=== PATIENT | male | born 1965 | race Asian ===

== ENCOUNTER 2016-12-12 10:19 | Inpatient (IN) | payer MEDICAID, OTHER ==
[~2016-12-12] VITALS: Ht 165.1 cm; Wt 65.5 kg
[2016-12-12 10:49] LABS: BASOPHILS % (AUTO) 0.2 % (0.0-2.0); EOSINOPHILS % (AUTO) 6.2 % (1.0-6.0); HEMATOCRIT 47.5 % (41-53); HEMOGLOBIN 15.7 g/dL (13.5-17.5); LYMPHOCYTES # (AUTO) 1.7 K/uL (1.0-4.8); LYMPHOCYTES % (AUTO) 22.4 % (22.0-44.0); MEAN CORPUSCULAR HEMOGLOBIN 29.2 pg (26.0-34.0); MEAN CORPUSCULAR HGB CONC 32.9 G/dL (31.0-37.0); MEAN CORPUSCULAR VOLUME 89 fL (80-100); MONOCYTES # (AUTO) 0.5 K/uL (0.1-1.0); MONOCYTES % (AUTO) 6.4 % (2.0-9.0); NEUTROPHILS # (AUTO) 4.9 K/uL (1.8-7.7); NEUTROPHILS % (AUTO) 64.8 % (40.0-70.0); PLATELET COUNT (AUTO) 246 K/uL (150-450); RED BLOOD CELL COUNT(AUTO) 5.35 MIL/uL (4.50-5.90); RED CELL DISTRIBUTION WIDTH 13.4 % (11.5-14.5); WHITE BLOOD COUNT (AUTO) 7.6 K/uL (4.5-11.0)
[2016-12-12 10:59] LABS: ANION GAP 8 mmol/L (8-16); CALCIUM, TOTAL 9.3 mg/dL (8.8-10.5); CARBON DIOXIDE 30 mmol/L (22-29); CHLORIDE 103 mmol/L (98-107); CREATININE 1.06 mg/dL (0.60-1.30); GLOMERULAR FILTR. RATE CALC > 60 mL/min (>60); POTASSIUM 4.5 mmol/L (3.5-5.1); SODIUM SERUM 141 mmol/L (136-145); UREA NITROGEN, BLOOD 16 mg/dL (7-18)
[2016-12-12] MEDS ORDERED: RISP1 PO (10:59)
[2016-12-12 11:03] LABS: ALANINE AMINOTRANSFERASE 26 U/L (12-78); ALBUMIN 4.1 g/dL (3.4-5.0); ASPARTATE AMINOTRANSFERASE 18 U/L (15-37); BILIRUBIN,TOTAL 0.4 mg/dL (0.1-1.0); TOTAL PROTEIN, SERUM 8.4 g/dL (6.4-8.2)
[2016-12-12] MEDS ORDERED: RisperiDONE 1 MG TABLET PO ONE (13:30)
[2016-12-12] MEDS ORDERED: LORazepam 2 MG TABLET PO ONE (13:30)
[2016-12-12] MEDS ORDERED: LORazepam 2 MG TABLET PO PRN (14:15)
[2016-12-12] MEDS ORDERED: ZOLPIDEM TARTRATE 10 MG TABLET PO PRN (14:15)
[2016-12-12] MEDS ORDERED: HALOPERIDOL 5 MG TABLET PO PRN (14:15)
[2016-12-12 15:36] VITALS: BP 137/86
[2016-12-12] MEDS ORDERED: INFLUENZA VIRUS VACCINE QVS 2016-17 (3YR+)/PF 60 MCG/0.5 ML SYRINGE IM ONE (15:45)
[2016-12-12 18:25] VITALS: BP 128/73
[2016-12-12] MEDS: RisperiDONE 1 MG TABLET PO SCH (20:36)
[2016-12-12] MEDS: DiphenhydrAMINE HCL 25 MG CAPSULE PO SCH (20:36)
[2016-12-13] MEDS ORDERED: PNEUMOCOCCAL VACCINE POLYVALENT 0.5 ML VIAL [PPSV23] IM ONE (06:45)
[2016-12-13] MEDS ORDERED: IBUPROFEN 400 MG TABLET PO PRN (07:15)
[2016-12-13] MEDS ORDERED: ACETAMINOPHEN 325 MG TABLET PO PRN (07:15)
[2016-12-13 08:30] VITALS: BP 140/90
[2016-12-13 19:23] VITALS: BP 122/74
[2016-12-13] MEDS: DiphenhydrAMINE HCL 25 MG CAPSULE PO SCH (20:20)
[2016-12-13] MEDS: RisperiDONE 1 MG TABLET PO SCH (20:20)
[2016-12-14 07:21] LABS: CHOL/HDL RATIO 6.1 (4.2-7.3); HEMOGLOBIN A1C 6.5 % (4.5-6.2); THYROID STIMULATING HORMONE 0.65 uIU/mL (0.36-3.74)
[2016-12-14 08:30] VITALS: BP 109/93
[2016-12-14 17:01] VITALS: BP 147/98
[2016-12-14] MEDS: RisperiDONE 1 MG TABLET PO SCH (20:04)
[2016-12-14] MEDS: DiphenhydrAMINE HCL 25 MG CAPSULE PO SCH (20:04)
[2016-12-15 08:00] VITALS: BP 127/80
[2016-12-15 16:56] VITALS: BP 142/85
[2016-12-15] MEDS: DiphenhydrAMINE HCL 25 MG CAPSULE PO SCH (20:39)
[2016-12-15] MEDS: RisperiDONE 1 MG TABLET PO SCH (20:39)
[2016-12-16 08:07] VITALS: BP 141/76
[2016-12-16] MEDS: RisperiDONE 1 MG TABLET PO SCH (20:08)
[2016-12-16] MEDS: DiphenhydrAMINE HCL 25 MG CAPSULE PO SCH (20:08)
[2016-12-16 20:10] VITALS: BP 122/83
[2016-12-17 08:00] VITALS: BP 127/78
[2016-12-17] MEDS ORDERED: RISP2 PO (14:22)
[2016-12-17] MEDS ORDERED: DIPH25 PO (14:22)
[2016-12-17] MEDS ORDERED: RisperiDONE 2 MG TABLET PO SCH (21:00)
== END 2016-12-17 20:00 | disposition home or self-care (01) | DRG 750 ==
LOC: EMS 10:23 → EEVIPCON 10:23 → 3EI 14:42
DX: F20.0 Paranoid schizophrenia (principal); R45.850 Homicidal ideations; I10 Essential (primary) hypertension; F15.90 Other stimulant use, unspecified, uncomplicated; F17.210 Nicotine dependence, cigarettes, uncomplicated; Z71.51 Drug abuse counseling and surveillance of drug abuser; Z28.21 Immunization not carried out because of patient refusal
CPT/HCPCS: 83036; 84443; 99285; G0480

== ENCOUNTER 2017-12-06 21:58 | Inpatient (IN) | payer MEDICAID, OTHER ==
[~2017-12-06] VITALS: Ht 165.1 cm; Wt 62.7 kg
[~2017-12-06 21:58] MED LIST: DIPH25 PO; RISP2 PO
[2017-12-06 22:31] LABS: BASOPHILS % (AUTO) 1.2 % (0.0-2.0); EOSINOPHILS % (AUTO) 9.7 % (1.0-6.0); HEMATOCRIT 40.9 % (41-53); HEMOGLOBIN 13.8 g/dL (13.5-17.5); LYMPHOCYTES # (AUTO) 1.2 K/uL (1.0-4.8); LYMPHOCYTES % (AUTO) 20.1 % (22.0-44.0); MEAN CORPUSCULAR HEMOGLOBIN 29.7 pg (26.0-34.0); MEAN CORPUSCULAR HGB CONC 33.8 G/dL (31.0-37.0); MEAN CORPUSCULAR VOLUME 88 fL (80-100); MONOCYTES # (AUTO) 0.4 K/uL (0.1-1.0); MONOCYTES % (AUTO) 7.1 % (2.0-9.0); NEUTROPHILS # (AUTO) 3.8 K/uL (1.8-7.7); NEUTROPHILS % (AUTO) 61.9 % (40.0-70.0); PLATELET COUNT (AUTO) 215 K/uL (150-450); RED BLOOD CELL COUNT(AUTO) 4.66 MIL/uL (4.50-5.90); RED CELL DISTRIBUTION WIDTH 14.3 % (11.5-14.5)
[2017-12-06 22:44] LABS: ANION GAP 10 mmol/L (8-16); CALCIUM, TOTAL 8.3 mg/dL (8.8-10.5); CARBON DIOXIDE 25 mmol/L (22-29); CHLORIDE 107 mmol/L (98-107); GLOMERULAR FILTR. RATE CALC > 60 mL/min (>60); GLUCOSE,RANDOM 177 mg/dL (70-110); POTASSIUM 3.7 mmol/L (3.5-5.1); SODIUM SERUM 142 mmol/L (136-145); UREA NITROGEN, BLOOD 18 mg/dL (7-18)
[2017-12-06] MEDS ORDERED: ACETAMINOPHEN 325 MG TABLET PO PRN (22:45)
[2017-12-06] MEDS ORDERED: ZOLPIDEM TARTRATE 10 MG TABLET PO PRN (22:45)
[2017-12-06] MEDS ORDERED: MAG HYDROX/AL HYDROX/SIMETH ES 30 ML SUSPENSION UDCUP PO PRN (22:45)
[2017-12-06] MEDS ORDERED: HALOPERIDOL 5 MG TABLET PO PRN (22:45)
[2017-12-06] MEDS ORDERED: LORazepam 2 MG TABLET PO PRN (22:45)
[2017-12-06] MEDS ORDERED: MAGNESIUM HYDROXIDE SUSPENSION 30 ML UDCUP PO PRN (22:45)
[2017-12-06 22:50] LABS: ALANINE AMINOTRANSFERASE 24 U/L (12-78); ALBUMIN 3.4 g/dL (3.4-5.0); ALKALINE PHOSPHATASE 93 U/L (46-116); ASPARTATE AMINOTRANSFERASE 18 U/L (15-37); BILIRUBIN,TOTAL 0.2 mg/dL (0.1-1.0); TOTAL PROTEIN, SERUM 7.2 g/dL (6.4-8.2)
[2017-12-06 23:01] LABS: AMPHET/METH SCREEN,URINE POSITIVE (NEGATIVE); BARBITURATE SCREEN, URINE NEGATIVE (NEGATIVE); BENZODIAZEPINES SCREEN,URINE NEGATIVE (NEGATIVE); CANNABINOID SCREEN,URINE NEGATIVE (NEGATIVE); COCAINE SCREEN,URINE NEGATIVE (NEGATIVE); METHADONE SCREEN, URINE NEGATIVE (NEGATIVE); OPIATE SCREEN,URINE NEGATIVE (NEGATIVE); PHENCYCLIDINE SCREEN,URINE NEGATIVE (NEGATIVE)
[2017-12-07 02:51] LABS: CHOL/HDL RATIO 3.4 (4.2-7.3); CHOLESTEROL 167 mg/dL (131-200); HDL CHOLESTEROL 49 mg/dL (40-60); LDL CHOL (CALC.) 69 mg/dL (0-130); TRIGLYCERIDES 245 mg/dL (15-150)
[2017-12-07 09:45] VITALS: BP 136/86
[2017-12-07 19:16] VITALS: BP 123/78
[2017-12-07] MEDS: RisperiDONE 1 MG TABLET PO SCH (19:56)
[2017-12-07] MEDS ORDERED: ACETAMINOPHEN 325 MG TABLET PO PRN (20:45)
[2017-12-07] MEDS ORDERED: IBUPROFEN 400 MG TABLET PO PRN (20:45)
[2017-12-07] MEDS: DiphenhydrAMINE HCL 25 MG CAPSULE PO SCH (20:51)
[2017-12-07] MEDS: SIMVASTATIN 10 MG TABLET PO SCH (21:37)
[2017-12-08 06:28] LABS: GLUCOMETER DEV NAME(LOC) 3EI B; GLUCOSE,POINT OF CARE 128 MG/DL (70-110)
[2017-12-08 06:53] VITALS: BP 118/73
[2017-12-08 07:53] LABS: THYROID STIMULATING HORMONE 1.66 uIU/mL (0.36-3.74)
[2017-12-08 08:30] VITALS: BP 119/77
[2017-12-08 08:34] LABS: HEMOGLOBIN A1C 5.6 % (4.5-6.2)
[2017-12-08] MEDS: RisperiDONE 1 MG TABLET PO SCH ×2 (09:55→16:42)
[2017-12-08 16:31] VITALS: BP 132/78
[2017-12-08] MEDS: SIMVASTATIN 10 MG TABLET PO SCH (20:58)
[2017-12-08] MEDS: DiphenhydrAMINE HCL 25 MG CAPSULE PO SCH (20:59)
[2017-12-09 05:57] LABS: GLUCOMETER DEV NAME(LOC) 3EI B; GLUCOSE,POINT OF CARE 107 MG/DL (70-110)
[2017-12-09 08:55] VITALS: BP 133/87
[2017-12-09] MEDS: RisperiDONE 1 MG TABLET PO SCH ×2 (09:26→16:56)
[2017-12-09 16:26] VITALS: BP 123/77
[2017-12-09] MEDS ORDERED: SIMV-259 PO (19:36)
== END 2017-12-09 20:00 | disposition home or self-care (01) | DRG 750 ==
LOC: EMS 21:59 → AHU 12-07 09:20 → 3EI 12-07 18:45
PROVIDERS: ADMIT Psychiatry & Neurology Child & Adolescent Psychiatry; ATTEND Psychiatry & Neurology Child & Adolescent Psychiatry
DX: F20.0 Paranoid schizophrenia (principal); I10 Essential (primary) hypertension; F15.10 Other stimulant abuse, uncomplicated; E78.5 Hyperlipidemia, unspecified; F41.9 Anxiety disorder, unspecified; R73.9 Hyperglycemia, unspecified
CPT/HCPCS: 82962; 83036; 84443; 87081; 99285; G0480

== ENCOUNTER 2018-12-07 12:59 | Inpatient (IN) | payer MEDICAID, OTHER ==
[~2018-12-07] VITALS: Ht 165.1 cm; Wt 63.5 kg
[~2018-12-07 12:59] MED LIST changes: +SIMV-259 PO
[2018-12-07] MEDS ORDERED: TEMA15CA PO (13:24)
[2018-12-07] MEDS ORDERED: LORA10TA7 PO (13:24)
[2018-12-07] MEDS ORDERED: METO25 PO (13:24)
[2018-12-07] MEDS ORDERED: SERT50TA12 PO (13:24)
[2018-12-07] MEDS ORDERED: FERR-89 PO (13:24)
[2018-12-07] MEDS ORDERED: ASPI81 PO (13:24)
[2018-12-07] MEDS ORDERED: FOLI1 PO (13:24)
[2018-12-07] MEDS ORDERED: SENN8.6T52 PO (13:24)
[2018-12-07] MEDS ORDERED: IPRA3AMP24 NEB (13:24)
[2018-12-07] MEDS ORDERED: LISI-662 PO (13:24)
[2018-12-07 13:28] LABS: GLUCOSE,POINT OF CARE 194 MG/DL (70-110)
[2018-12-07 13:36] LABS: BASOPHILS % (AUTO) 1.3 % (0.0-2.0); EOSINOPHILS % (AUTO) 2.6 % (1.0-6.0); HEMATOCRIT 27.9 % (41-53); HEMOGLOBIN 9.2 g/dL (13.5-17.5); LYMPHOCYTES # (AUTO) 0.9 K/uL (1.0-4.8); LYMPHOCYTES % (AUTO) 8.5 % (22.0-44.0); MEAN CORPUSCULAR HEMOGLOBIN 29.1 pg (26.0-34.0); MEAN CORPUSCULAR VOLUME 88 fL (80-100); MONOCYTES # (AUTO) 0.7 K/uL (0.1-1.0); MONOCYTES % (AUTO) 7.3 % (2.0-9.0); NEUTROPHILS # (AUTO) 8.1 K/uL (1.8-7.7); NEUTROPHILS % (AUTO) 80.3 % (40.0-70.0); PLATELET COUNT (AUTO) 603 K/uL (150-450); RED BLOOD CELL COUNT(AUTO) 3.16 MIL/uL (4.50-5.90); RED CELL DISTRIBUTION WIDTH 14.8 % (11.5-14.5)
[2018-12-07 13:48] LABS: ANION GAP 8 mmol/L (8-16); CALCIUM, TOTAL 8.9 mg/dL (8.8-10.5); CARBON DIOXIDE 25 mmol/L (22-29); CHLORIDE 99 mmol/L (98-107); GLOMERULAR FILTR. RATE CALC > 60 mL/min (>60); GLUCOSE,RANDOM 199 mg/dL (70-110); POTASSIUM 4.3 mmol/L (3.5-5.1); SODIUM SERUM 132 mmol/L (136-145); UREA NITROGEN, BLOOD 23 mg/dL (7-18)
[2018-12-07 13:53] LABS: PROTHROMBIN TIME 10.7 SEC (9.4-11.6)
[2018-12-07 13:54] LABS: ALANINE AMINOTRANSFERASE 69 U/L (12-78); ALKALINE PHOSPHATASE 180 U/L (46-116); ASPARTATE AMINOTRANSFERASE 46 U/L (15-37); BILIRUBIN,TOTAL 0.3 mg/dL (0.1-1.0); CREATINE KINASE, TOTAL ONLY 42 U/L (39-308); TOTAL PROTEIN, SERUM 7.5 g/dL (6.4-8.2)
[2018-12-07 14:13] LABS: B-TYPE NATRIURETIC PEPTIDE 208 pg/mL (0-100)
[2018-12-07] MEDS ORDERED: ACETAMINOPHEN 325 MG TABLET PO PRN (14:45)
[2018-12-07] MEDS ORDERED: ALBUTEROL SULFATE 2.5 MG/0.5 ML NEB SOLUTION NEB PRN (14:45)
[2018-12-07] MEDS ORDERED: DEXTROSE 50%-WATER 25 GM/50 ML SYRINGE IVP PRN (15:00)
[2018-12-07] MEDS ORDERED: GADOBUTROL 1 MMOL/ML 10 ML VIAL IVP ONE (15:36)
[2018-12-07] MEDS ORDERED: RisperiDONE 1 MG TABLET PO PRN (16:00)
[2018-12-07] MEDS: HEPARIN SODIUM,PORCINE 5,000 UNITS/ML VIAL SQ SCH ×2 (16:49→23:53)
[2018-12-07 17:21] VITALS: BP 97/65
[2018-12-07 19:48] VITALS: BP 99/57
[2018-12-07 20:37] LABS: GLUCOMETER DEV NAME(LOC) 5N.1; GLUCOSE,POINT OF CARE 145 MG/DL (70-110)
[2018-12-07] MEDS: DOCUSATE SODIUM 100 MG CAPSULE PO SCH (20:38)
[2018-12-07] MEDS: RisperiDONE 2 MG TABLET PO SCH (20:38)
[2018-12-07] MEDS: ATORVASTATIN CALCIUM 40 MG TABLET PO SCH (20:38)
[2018-12-07] MEDS: FAMOTIDINE 20 MG TABLET PO SCH (20:38)
[2018-12-07] MEDS: INSULIN LISPRO 100 UNITS/ML SQ PRN (20:39)
[2018-12-07 20:53] LABS: GLUCOMETER DEV NAME(LOC) 5N.2; GLUCOSE,POINT OF CARE 109 MG/DL (70-110)
[2018-12-07] MEDS ORDERED: DiphenhydrAMINE HCL 25 MG CAPSULE PO SCH (21:00)
[2018-12-07 23:48] VITALS: BP 105/65
[2018-12-08] VITALS (7 sets, daily range): BP systolic 74–120; BP diastolic 52–65
[2018-12-08 05:40] LABS: APPEARANCE,URINE CLEAR (CLEAR); BILIRUBIN,URINE NEGATIVE (NEGATIVE); GLUCOSE, URINE (UA) NEGATIVE (NEGATIVE); KETONES,URINE NEGATIVE (NEGATIVE); LEUKOCYTE ESTERASE ,URINE NEGATIVE (NEGATIVE); NITRATE,URINE NEGATIVE (NEGATIVE); OCCULT BLOOD,URINE NEGATIVE (NEGATIVE); PH,URINE 5.5 (5.0-8.0); PROTEIN,URINE NEGATIVE (NEGATIVE)
[2018-12-08 05:45] LABS: GLUCOMETER DEV NAME(LOC) 5N.2; GLUCOSE,POINT OF CARE 123 MG/DL (70-110)
[2018-12-08] MEDS ORDERED: SODIUM CHLORIDE 0.9% 1,000 ML IV SCH (06:00)
[2018-12-08] MEDS ORDERED: SODIUM CHLORIDE 0.9% 1,000 ML IV ONE (06:00)
[2018-12-08] MEDS: HEPARIN SODIUM,PORCINE 5,000 UNITS/ML VIAL SQ SCH ×3 (07:50→22:16)
[2018-12-08] MEDS: SERTRALINE HCL 50 MG TABLET PO SCH (07:50)
[2018-12-08] MEDS: DOCUSATE SODIUM 100 MG CAPSULE PO SCH ×2 (07:50→22:16)
[2018-12-08] MEDS: FAMOTIDINE 20 MG TABLET PO SCH ×2 (07:50→22:15)
[2018-12-08] MEDS ORDERED: LISINOPRIL 5 MG TABLET PO SCH (09:00)
[2018-12-08] MEDS ORDERED: ASPIRIN 81 MG CHEWABLE TABLET PO SCH (09:00)
[2018-12-08] MEDS ORDERED: METOPROLOL SUCCINATE 25 MG ER TABLET PO SCH (09:00)
[2018-12-08] MEDS ORDERED: SODIUM CHLORIDE 0.9% IRRIG BTL 1,000 ML IRRIG ONE (10:34)
[2018-12-08 12:54] LABS: GLUCOMETER DEV NAME(LOC) 5N.2; GLUCOSE,POINT OF CARE 112 MG/DL (70-110)
[2018-12-08 12:59] LABS: HEMOGLOBIN A1C 5.8 % (4.5-6.2)
[2018-12-08 13:16] LABS: CHOL/HDL RATIO 2.8 (4.2-7.3); THYROID STIMULATING HORMONE 0.78 uIU/mL (0.36-3.74)
[2018-12-08] MEDS ORDERED: SODIUM CHLORIDE 0.9% 100 ML ONE (16:31)
[2018-12-08] MEDS ORDERED: IOVERSOL 350 MG/ML 100 ML VIAL ONE (16:31)
[2018-12-08] MEDS: ATORVASTATIN CALCIUM 40 MG TABLET PO SCH (22:15)
[2018-12-08] MEDS: RisperiDONE 2 MG TABLET PO SCH (22:16)
[2018-12-08] MEDS: OxyCODONE HCL/ACETAMINOPHEN 5-325 MG TABLET PO PRN (22:16)
[2018-12-08] MEDS: INSULIN LISPRO 100 UNITS/ML SQ PRN (22:41)
[2018-12-09 00:24] VITALS: BP 110/66
[2018-12-09 03:59] VITALS: BP 142/57
[2018-12-09 07:39] LABS: GLUCOMETER DEV NAME(LOC) 5N.1; GLUCOSE,POINT OF CARE 157 MG/DL (70-110)
[2018-12-09 07:39] LABS: GLUCOMETER DEV NAME(LOC) 5N.2; GLUCOSE,POINT OF CARE 183 MG/DL (70-110)
[2018-12-09 07:39] LABS: GLUCOMETER DEV NAME(LOC) 5N.1; GLUCOSE,POINT OF CARE 134 MG/DL (70-110)
[2018-12-09 07:42] VITALS: BP 109/68
[2018-12-09] MEDS: HEPARIN SODIUM,PORCINE 5,000 UNITS/ML VIAL SQ SCH ×2 (08:26→17:18)
[2018-12-09] MEDS: SERTRALINE HCL 50 MG TABLET PO SCH (08:26)
[2018-12-09] MEDS: ASPIRIN 325 MG TABLET PO SCH (08:26)
[2018-12-09] MEDS: FAMOTIDINE 20 MG TABLET PO SCH ×2 (08:27→20:31)
[2018-12-09] MEDS: DOCUSATE SODIUM 100 MG CAPSULE PO SCH ×2 (08:27→20:31)
[2018-12-09 11:11] VITALS: BP 100/58
[2018-12-09 13:34] LABS: GLUCOMETER DEV NAME(LOC) 5N.2; GLUCOSE,POINT OF CARE 125 MG/DL (70-110)
[2018-12-09 15:59] VITALS: BP 99/59
[2018-12-09 19:41] VITALS: BP 105/69
[2018-12-09] MEDS: RisperiDONE 2 MG TABLET PO SCH (20:31)
[2018-12-09] MEDS: ATORVASTATIN CALCIUM 40 MG TABLET PO SCH (20:31)
[2018-12-09] MEDS: OxyCODONE HCL/ACETAMINOPHEN 5-325 MG TABLET PO PRN (21:37)
[2018-12-10 00:03] VITALS: BP 115/73
[2018-12-10] MEDS: HEPARIN SODIUM,PORCINE 5,000 UNITS/ML VIAL SQ SCH ×3 (00:05→15:10)
[2018-12-10 04:25] VITALS: BP 97/65
[2018-12-10 07:29] LABS: GLUCOMETER DEV NAME(LOC) 5N.1; GLUCOSE,POINT OF CARE 105 MG/DL (70-110)
[2018-12-10 07:29] LABS: GLUCOMETER DEV NAME(LOC) 5N.1; GLUCOSE,POINT OF CARE 122 MG/DL (70-110)
[2018-12-10 07:29] LABS: GLUCOMETER DEV NAME(LOC) 5N.1; GLUCOSE,POINT OF CARE 113 MG/DL (70-110)
[2018-12-10 07:45] VITALS: BP 97/66
[2018-12-10] MEDS: ASPIRIN 325 MG TABLET PO SCH (08:17)
[2018-12-10] MEDS: FAMOTIDINE 20 MG TABLET PO SCH ×2 (08:17→20:09)
[2018-12-10] MEDS: DOCUSATE SODIUM 100 MG CAPSULE PO SCH ×2 (08:17→20:09)
[2018-12-10] MEDS: SERTRALINE HCL 50 MG TABLET PO SCH (08:18)
[2018-12-10 11:01] VITALS: BP 119/70
[2018-12-10 11:50] LABS: GLUCOMETER DEV NAME(LOC) 5N.1; GLUCOSE,POINT OF CARE 132 MG/DL (70-110)
[2018-12-10 15:50] VITALS: BP 109/72
[2018-12-10 19:52] VITALS: BP 108/70
[2018-12-10] MEDS: ATORVASTATIN CALCIUM 40 MG TABLET PO SCH (20:09)
[2018-12-10] MEDS: RisperiDONE 2 MG TABLET PO SCH (20:10)
[2018-12-11] VITALS (8 sets, daily range): BP systolic 86–112; BP diastolic 60–73
[2018-12-11] MEDS: HEPARIN SODIUM,PORCINE 5,000 UNITS/ML VIAL SQ SCH ×3 (00:57→15:33)
[2018-12-11 06:04] LABS: GLUCOMETER DEV NAME(LOC) 5N.1; GLUCOSE,POINT OF CARE 139 MG/DL (70-110)
[2018-12-11 06:05] LABS: GLUCOMETER DEV NAME(LOC) 5N.1; GLUCOSE,POINT OF CARE 124 MG/DL (70-110)
[2018-12-11 07:49] LABS: GLUCOMETER DEV NAME(LOC) 5N.2; GLUCOSE,POINT OF CARE 107 MG/DL (70-110)
[2018-12-11] MEDS: DOCUSATE SODIUM 100 MG CAPSULE PO SCH ×2 (09:03→20:05)
[2018-12-11] MEDS: FAMOTIDINE 20 MG TABLET PO SCH ×2 (09:03→20:05)
[2018-12-11] MEDS: SERTRALINE HCL 50 MG TABLET PO SCH (09:03)
[2018-12-11] MEDS: ASPIRIN 325 MG TABLET PO SCH (09:03)
[2018-12-11] MEDS ORDERED: SODIUM CHLORIDE 0.9% 250 ML IV PRN (09:15)
[2018-12-11] MEDS: INSULIN LISPRO 100 UNITS/ML SQ PRN ×2 (12:00→20:06)
[2018-12-11 18:54] LABS: GLUCOMETER DEV NAME(LOC) 5N.1; GLUCOSE,POINT OF CARE 103 MG/DL (70-110)
[2018-12-11 18:54] LABS: GLUCOMETER DEV NAME(LOC) 5N.2; GLUCOSE,POINT OF CARE 165 MG/DL (70-110)
[2018-12-11] MEDS: MAGNESIUM HYDROXIDE SUSPENSION 30 ML UDCUP PO PRN (19:51)
[2018-12-11] MEDS: RisperiDONE 2 MG TABLET PO SCH (20:05)
[2018-12-11] MEDS: ATORVASTATIN CALCIUM 40 MG TABLET PO SCH (20:05)
[2018-12-11] MEDS: OxyCODONE HCL/ACETAMINOPHEN 5-325 MG TABLET PO PRN (21:05)
[2018-12-11 23:04] LABS: GLUCOMETER DEV NAME(LOC) 5N.1; GLUCOSE,POINT OF CARE 195 MG/DL (70-110)
[2018-12-12] MEDS: HEPARIN SODIUM,PORCINE 5,000 UNITS/ML VIAL SQ SCH ×3 (00:02→15:29)
[2018-12-12 03:58] VITALS: BP 101/72
[2018-12-12 07:23] VITALS: BP 104/60
[2018-12-12 07:39] LABS: GLUCOMETER DEV NAME(LOC) 5N.1; GLUCOSE,POINT OF CARE 104 MG/DL (70-110)
[2018-12-12] MEDS: ASPIRIN 325 MG TABLET PO SCH (08:15)
[2018-12-12] MEDS: DOCUSATE SODIUM 100 MG CAPSULE PO SCH ×2 (08:15→20:14)
[2018-12-12] MEDS: FAMOTIDINE 20 MG TABLET PO SCH ×2 (08:16→21:23)
[2018-12-12] MEDS: SERTRALINE HCL 50 MG TABLET PO SCH (08:16)
[2018-12-12 10:33] VITALS: BP 107/72
[2018-12-12] MEDS: INSULIN LISPRO 100 UNITS/ML SQ PRN ×2 (11:49→20:26)
[2018-12-12 12:59] LABS: GLUCOMETER DEV NAME(LOC) 5N.1; GLUCOSE,POINT OF CARE 177 MG/DL (70-110)
[2018-12-12 16:00] VITALS: BP 101/68
[2018-12-12 19:22] VITALS: BP 101/71
[2018-12-12] MEDS: RisperiDONE 2 MG TABLET PO SCH (20:14)
[2018-12-12] MEDS: ATORVASTATIN CALCIUM 40 MG TABLET PO SCH (20:15)
[2018-12-12] MEDS: MAGNESIUM HYDROXIDE SUSPENSION 30 ML UDCUP PO PRN (20:22)
[2018-12-13] MEDS: HEPARIN SODIUM,PORCINE 5,000 UNITS/ML VIAL SQ SCH ×3 (00:06→16:07)
[2018-12-13 00:09] VITALS: BP 109/76
[2018-12-13 03:00] VITALS: BP 104/69
[2018-12-13] MEDS: OxyCODONE HCL/ACETAMINOPHEN 5-325 MG TABLET PO PRN (03:02)
[2018-12-13 06:05] LABS: GLUCOMETER DEV NAME(LOC) 5N.1; GLUCOSE,POINT OF CARE 110 MG/DL (70-110)
[2018-12-13 06:05] LABS: GLUCOMETER DEV NAME(LOC) 5N.1; GLUCOSE,POINT OF CARE 162 MG/DL (70-110)
[2018-12-13 06:44] LABS: GLUCOMETER DEV NAME(LOC) 5N.2; GLUCOSE,POINT OF CARE 114 MG/DL (70-110)
[2018-12-13 07:21] VITALS: BP 100/62
[2018-12-13] MEDS: FAMOTIDINE 20 MG TABLET PO SCH (07:59)
[2018-12-13] MEDS: SERTRALINE HCL 50 MG TABLET PO SCH (07:59)
[2018-12-13] MEDS: DOCUSATE SODIUM 100 MG CAPSULE PO SCH (07:59)
[2018-12-13] MEDS: ASPIRIN 325 MG TABLET PO SCH (07:59)
[2018-12-13 11:28] VITALS: BP 135/65
[2018-12-13] MEDS: INSULIN LISPRO 100 UNITS/ML SQ PRN ×2 (12:11→18:06)
[2018-12-13 12:34] LABS: GLUCOMETER DEV NAME(LOC) 5N.1; GLUCOSE,POINT OF CARE 168 MG/DL (70-110)
[2018-12-13] MEDS ORDERED: ASPI-989 PO (14:08)
[2018-12-13] MEDS ORDERED: DSS100 PO (14:09)
[2018-12-13] MEDS ORDERED: FAMO20 PO (14:09)
[2018-12-13] MEDS ORDERED: ATOR40TA28 PO (14:09)
[2018-12-13] MEDS ORDERED: HEPA500018 SQ (14:10)
[2018-12-13] MEDS ORDERED: ACET-2247 PO (14:10)
[2018-12-13] MEDS ORDERED: AUD NEB (14:11)
[2018-12-13] MEDS ORDERED: D50SYG IV (14:12)
[2018-12-13] MEDS ORDERED: MOM30 PO (14:12)
[2018-12-13] MEDS ORDERED: INSU100V SQ (14:12)
[2018-12-13] MEDS ORDERED: PERCT PO (14:13)
[2018-12-13] MEDS ORDERED: RISP1 PO (14:14)
[2018-12-13] MEDS ORDERED: FUROSEMIDE 20 MG/2 ML VIAL IVP ONE (15:45)
[2018-12-13 15:55] VITALS: BP 102/65
[2018-12-13 23:19] LABS: GLUCOMETER DEV NAME(LOC) 5N.1; GLUCOSE,POINT OF CARE 160 MG/DL (70-110)
== END 2018-12-13 18:40 | DRG 45 ==
LOC: EMS 12:59 → 5N 16:07
PROVIDERS: ADMIT Internal Medicine; ATTEND Internal Medicine
DX: I63.9 Cerebral infarction, unspecified (principal); E11.40 Type 2 diabetes mellitus with diabetic neuropathy, unspecified; R29.810 Facial weakness; F20.9 Schizophrenia, unspecified; G51.0 Bell's palsy; I25.10 Atherosclerotic heart disease of native coronary artery without angina pectoris; D63.8 Anemia in other chronic diseases classified elsewhere; E78.00 Pure hypercholesterolemia, unspecified; E78.5 Hyperlipidemia, unspecified; F15.10 Other stimulant abuse, uncomplicated; F17.210 Nicotine dependence, cigarettes, uncomplicated; I10 Essential (primary) hypertension; I65.29 Occlusion and stenosis of unspecified carotid artery; J44.9 Chronic obstructive pulmonary disease, unspecified; I25.2 Old myocardial infarction; K21.9 Gastro-esophageal reflux disease without esophagitis; Z79.82 Long term (current) use of aspirin; Z81.8 Family history of other mental and behavioral disorders; Z91.14 Patient's other noncompliance with medication regimen; Z95.1 Presence of aortocoronary bypass graft; Z79.899 Other long term (current) drug therapy
CPT/HCPCS: 70450; 70496; 70553; 82607; 83036; 84443; 87081; 92507; 92526; 92610; 93005; 93306; 97112; 97116; 97163; 97167; 97530; 97535; A9585; G0378; J1644; J1940; J7030; J7050

== ENCOUNTER 2025-09-08 05:52 | Inpatient (IN) | payer MEDICARE, MEDICAID ==
[~2025-09-08] VITALS: Ht 165.1 cm; Wt 64.5 kg
[~2025-09-08 05:52] MED LIST changes: +ACET-2247 PO; +ALBU2.5V39 NEB; +ASPI-1450 PO; +ASPI-4 PO; +ATOR40TA28 PO; +D50SYG IV; +DIPH-1243 PO; -DIPH25 PO; +DSS100 PO; +FAMO20 PO; +FERR325T27 PO; +FOLI-130 PO; +HEPA50009 SQ; +INSU100V SQ; +IPRA3AMP24 NEB; +LISI-894 PO; +LORA10TA7 PO; +MAGN-169 PO; +METO25 PO; +PERCT PO; +RISP1TAB48 PO; -RISP2 PO; +RISP2TAB45 PO; +SENN8.6T52 PO; +SERT-158 PO; +TEMA15CA PO
[2025-09-08 06:34] LABS: PLATELET COUNT (AUTO) 350 K/uL (150-450); RED BLOOD CELL COUNT(AUTO) 4.66 MIL/uL (4.50-5.90); RED CELL DISTRIBUTION WIDTH 13.8 % (11.5-14.5); WHITE BLOOD COUNT (AUTO) 6.6 K/uL (4.5-11.0)
[2025-09-08 06:43] LABS: COVID AG,FIA SOURCE NASAL SWAB
[2025-09-08 06:46] LABS: CALCIUM, TOTAL 9.3 mg/dL (8.8-10.5); CREATININE 1.51 mg/dL (0.60-1.30); GLOMERULAR FILTR. RATE CALC 47.0 mL/min (>60); GLUCOSE,RANDOM 125.0 mg/dL (70-110); SODIUM SERUM 139.0 mmol/L (136-145); UREA NITROGEN, BLOOD 22.0 mg/dL (7-18)
[2025-09-08 07:53] LABS: SARS-COV2 (COVID) ANTIGEN,FIA Negative (Negative)
[2025-09-08 11:40] VITALS: O2SAT 97
[2025-09-08 13:20] VITALS: BP 141/92; PULSE 89; RESP 16; TEMP 97.9; O2SAT 97
[2025-09-08 14:21] LABS: GLUCOMETER DEV NAME(LOC) BV2S.; GLUCOSE,POINT OF CARE 138 MG/DL (70-110)
[2025-09-08 20:44] VITALS: BP 119/67; PULSE 80; RESP 15; TEMP 97.9; O2SAT 98
[2025-09-09] MEDS: SERTRALINE HCL 50 MG TABLET PO SCH (08:44)
[2025-09-09 08:52] VITALS: BP 126/76; PULSE 101; RESP 16; TEMP 98.6; O2SAT 97
[2025-09-09 11:04] LABS: CHOL/HDL RATIO 2.7 (4.2-7.3); LDL CHOL (CALC.) 81.0 mg/dL (0-130)
[2025-09-09] MEDS ORDERED: DOCUSATE SODIUM 100 MG CAPSULE PO PRN (15:45)
[2025-09-09] MEDS ORDERED: BACITRACIN 28 GM OINTMENT TP PRN (15:45)
[2025-09-09] MEDS ORDERED: ALBUTEROL SULFATE HFA 90 MCG/PUFF 8 GM INHALER IH PRN (15:45)
[2025-09-09] MEDS ORDERED: MAGNESIUM HYDROXIDE SUSPENSION 30 ML UDCUP PO PRN (15:45)
[2025-09-09] MEDS ORDERED: ACETAMINOPHEN 325 MG TABLET PO PRN (15:45)
[2025-09-09] MEDS ORDERED: ONDANSETRON 4 MG TABLET PO PRN (15:45)
[2025-09-09] MEDS ORDERED: BENZOCAINE/MENTHOL [CEPACOL] LOZENGE PO PRN (15:45)
[2025-09-09] MEDS ORDERED: OMEPRAZOLE 20 MG CAPSULE PO PRN (15:45)
[2025-09-09] MEDS ORDERED: PETROLATUM,WHITE 28 GM JELLY TP PRN (15:45)
[2025-09-09] MEDS ORDERED: MAG HYDROX/ALUMINUM HYD/SIMETH ES 30 ML SUSPENSION UDCUP PO PRN (15:45)
[2025-09-09] MEDS ORDERED: IBUPROFEN 600 MG TABLET PO PRN (15:45)
[2025-09-09] MEDS: LOPERAMIDE HCL 2 MG CAPSULE PO PRN (17:27)
[2025-09-09 20:21] VITALS: BP 145/91; PULSE 100; RESP 18; TEMP 98.2; O2SAT 98
[2025-09-10 08:20] VITALS: BP 115/78; PULSE 87; RESP 18; TEMP 97.3; O2SAT 97
[2025-09-10 20:25] VITALS: BP 145/89; PULSE 84; RESP 17; TEMP 97.9; O2SAT 96
[2025-09-11 08:20] VITALS: BP 147/92; PULSE 95; RESP 18; TEMP 97.3; O2SAT 98
[2025-09-11 17:07] LABS: HEPATITIS C AB (EIA) Non Reactive (Non Reactive)
[2025-09-11] MEDS: CHOLECALCIFEROL (VIT D3) 1,000 UNITS [25 MCG] TABLET PO ONE (18:35)
[2025-09-11] MEDS: ATORVASTATIN CALCIUM 40 MG TABLET PO SCH (20:09)
[2025-09-11 20:25] VITALS: BP 152/90; PULSE 99; RESP 18; TEMP 98.6; O2SAT 97
[2025-09-12 08:43] VITALS: BP 141/77; PULSE 100; RESP 16; TEMP 97.2; O2SAT 97
[2025-09-12] MEDS: PANTOPRAZOLE SODIUM 40 MG DR TABLET PO SCH (09:15)
[2025-09-12] MEDS: METOPROLOL TARTRATE 25 MG TABLET PO SCH (09:16)
[2025-09-12] MEDS: FOLIC ACID 1 MG TABLET PO SCH (09:17)
[2025-09-12] MEDS: ASPIRIN 81 MG CHEWABLE TABLET PO SCH (09:17)
[2025-09-12] MEDS: CLOPIDOGREL BISULFATE 75 MG TABLET PO SCH (09:17)
[2025-09-12] MEDS: FENOFIBRATE 160 MG TABLET PO SCH (09:18)
[2025-09-12 20:27] VITALS: BP 110/75; PULSE 68; RESP 17; TEMP 97.8; O2SAT 99
[2025-09-13 08:44] VITALS: BP 95/72; PULSE 65; RESP 18; TEMP 97.2; O2SAT 98
[2025-09-13] MEDS ORDERED: DEXTROSE 50%-WATER 25 GM/50 ML SYRINGE IVP PRN (20:00)
[2025-09-13 20:11] VITALS: BP 110/80; PULSE 71; RESP 17; TEMP 98; O2SAT 99
[2025-09-13 23:01] LABS: GLUCOMETER DEV NAME(LOC) BV2S.; GLUCOSE,POINT OF CARE 88 MG/DL (70-110)
[2025-09-14 06:05] LABS: GLUCOMETER DEV NAME(LOC) BV2S.; GLUCOSE,POINT OF CARE 112 MG/DL (70-110)
[2025-09-14 08:23] VITALS: BP 147/97; PULSE 91; RESP 17; TEMP 97.9; O2SAT 96
[2025-09-14 11:46] LABS: GLUCOMETER DEV NAME(LOC) BV2S.; GLUCOSE,POINT OF CARE 117 MG/DL (70-110)
[2025-09-14] MEDS: INSULIN LISPRO 100 UNITS/ML SQ PRN (16:31)
[2025-09-14 16:46] LABS: GLUCOMETER DEV NAME(LOC) BV2S.; GLUCOSE,POINT OF CARE 147 MG/DL (70-110)
[2025-09-14 20:24] VITALS: BP 123/81; PULSE 71; RESP 18; TEMP 98.2; O2SAT 99
[2025-09-14] MEDS: ZOLPIDEM TARTRATE 10 MG TABLET PO PRN (20:36)
[2025-09-14 21:06] LABS: GLUCOMETER DEV NAME(LOC) BV2S.; GLUCOSE,POINT OF CARE 114 MG/DL (70-110)
[2025-09-15 06:51] LABS: GLUCOMETER DEV NAME(LOC) BV2S.; GLUCOSE,POINT OF CARE 107 MG/DL (70-110)
[2025-09-15 08:09] VITALS: BP 132/81; PULSE 81; RESP 19; TEMP 98.1; O2SAT 95
[2025-09-15 12:11] LABS: GLUCOMETER DEV NAME(LOC) BV2S.; GLUCOSE,POINT OF CARE 100 MG/DL (70-110)
[2025-09-15] MEDS: INSULIN LISPRO 100 UNITS/ML SQ PRN (16:36)
[2025-09-15 16:50] LABS: GLUCOMETER DEV NAME(LOC) BV2S.; GLUCOSE,POINT OF CARE 169 MG/DL (70-110)
[2025-09-15 20:22] VITALS: BP 104/71; PULSE 81; RESP 19; TEMP 98.5; O2SAT 96
[2025-09-15 20:35] LABS: GLUCOMETER DEV NAME(LOC) BV2S.; GLUCOSE,POINT OF CARE 109 MG/DL (70-110)
[2025-09-16 06:21] LABS: GLUCOMETER DEV NAME(LOC) BV2S.; GLUCOSE,POINT OF CARE 113 MG/DL (70-110)
[2025-09-16 08:32] VITALS: BP 114/76; PULSE 89; RESP 18; TEMP 98.6; O2SAT 95
[2025-09-16 11:35] LABS: GLUCOMETER DEV NAME(LOC) BV2S.; GLUCOSE,POINT OF CARE 94 MG/DL (70-110)
[2025-09-16 20:46] VITALS: BP 115/78; PULSE 80; RESP 18; TEMP 98; O2SAT 98
[2025-09-16 22:00] LABS: GLUCOMETER DEV NAME(LOC) BV2S.; GLUCOSE,POINT OF CARE 133 MG/DL (70-110)
[2025-09-17 07:00] LABS: GLUCOMETER DEV NAME(LOC) BV2S.; GLUCOSE,POINT OF CARE 115 MG/DL (70-110)
[2025-09-17 08:16] VITALS: BP 120/86; PULSE 84; RESP 17; TEMP 99.2; O2SAT 96
[2025-09-17 16:50] LABS: GLUCOMETER DEV NAME(LOC) BV2S.; GLUCOSE,POINT OF CARE 144 MG/DL (70-110)
[2025-09-17 17:06] VITALS: BP 120/72; RESP 17; O2SAT 96
[2025-09-17 20:26] VITALS: BP 118/77; PULSE 75; RESP 17; TEMP 98.1; O2SAT 98
[2025-09-17 20:40] LABS: GLUCOMETER DEV NAME(LOC) BV2S.; GLUCOSE,POINT OF CARE 98 MG/DL (70-110)
[2025-09-18 06:45] LABS: GLUCOMETER DEV NAME(LOC) BV2S.; GLUCOSE,POINT OF CARE 119 MG/DL (70-110)
[2025-09-18 08:22] VITALS: BP 103/70; PULSE 78; RESP 17; TEMP 97.2; O2SAT 96
[2025-09-18] MEDS: GLUCAGON,HUMAN RECOMBINANT 1 MG VIAL IM PRN (11:44)
[2025-09-18 12:01] LABS: GLUCOMETER DEV NAME(LOC) BV2S.; GLUCOSE,POINT OF CARE 69 MG/DL (70-110)
[2025-09-18 17:06] LABS: GLUCOMETER DEV NAME(LOC) BV2S.; GLUCOSE,POINT OF CARE 153 MG/DL (70-110)
[2025-09-18 20:34] VITALS: BP 107/77; PULSE 77; RESP 17; TEMP 97.8; O2SAT 99
[2025-09-18 23:20] LABS: GLUCOMETER DEV NAME(LOC) BV2S.; GLUCOSE,POINT OF CARE 92 MG/DL (70-110)
[2025-09-19 06:31] LABS: GLUCOMETER DEV NAME(LOC) BV2S.; GLUCOSE,POINT OF CARE 97 MG/DL (70-110)
[2025-09-19 08:40] VITALS: BP 111/74; PULSE 88; RESP 16; TEMP 97.2; O2SAT 98
[2025-09-19 11:26] LABS: GLUCOMETER DEV NAME(LOC) BV2S.; GLUCOSE,POINT OF CARE 105 MG/DL (70-110)
[2025-09-19 17:15] LABS: GLUCOMETER DEV NAME(LOC) BV2S.; GLUCOSE,POINT OF CARE 94 MG/DL (70-110)
[2025-09-19 20:51] LABS: GLUCOMETER DEV NAME(LOC) BV2S.; GLUCOSE,POINT OF CARE 97 MG/DL (70-110)
[2025-09-19 21:04] VITALS: BP 123/69; PULSE 69; RESP 17; TEMP 97.8; O2SAT 99
[2025-09-20 06:11] LABS: GLUCOMETER DEV NAME(LOC) BV2S.; GLUCOSE,POINT OF CARE 90 MG/DL (70-110)
[2025-09-20 08:28] VITALS: BP 100/76; PULSE 85; RESP 16; TEMP 97.3; O2SAT 97
[2025-09-20 11:25] LABS: GLUCOMETER DEV NAME(LOC) BV2S.; GLUCOSE,POINT OF CARE 127 MG/DL (70-110)
[2025-09-20 17:16] LABS: GLUCOMETER DEV NAME(LOC) BV2S.; GLUCOSE,POINT OF CARE 170 MG/DL (70-110)
[2025-09-20 20:27] VITALS: BP 117/73; PULSE 87; RESP 16; TEMP 97.5; O2SAT 98
[2025-09-20 20:50] LABS: GLUCOMETER DEV NAME(LOC) BV2S.; GLUCOSE,POINT OF CARE 131 MG/DL (70-110)
[2025-09-20] MEDS: LATANOPROST 0.005% 2.5 ML OPHTHALMIC SOLUTION OU SCH (21:34)
[2025-09-21 06:41] LABS: GLUCOMETER DEV NAME(LOC) BV2S.; GLUCOSE,POINT OF CARE 99 MG/DL (70-110)
[2025-09-21 08:29] VITALS: BP 120/73; PULSE 86; RESP 18; TEMP 97.6; O2SAT 96
[2025-09-21 11:35] LABS: GLUCOMETER DEV NAME(LOC) BV2S.; GLUCOSE,POINT OF CARE 100 MG/DL (70-110)
[2025-09-21 16:46] LABS: GLUCOMETER DEV NAME(LOC) BV2S.; GLUCOSE,POINT OF CARE 119 MG/DL (70-110)
[2025-09-21 16:50] VITALS: BP 100/61; PULSE 77
[2025-09-21 20:15] VITALS: BP 121/78; PULSE 80; RESP 16; TEMP 98.1; O2SAT 95
[2025-09-21 21:20] LABS: GLUCOMETER DEV NAME(LOC) BV2S.; GLUCOSE,POINT OF CARE 99 MG/DL (70-110)
[2025-09-22 06:51] LABS: GLUCOMETER DEV NAME(LOC) BV2S.; GLUCOSE,POINT OF CARE 91 MG/DL (70-110)
[2025-09-22 08:38] VITALS: BP 113/76; PULSE 99; RESP 18; TEMP 97.5; O2SAT 97
[2025-09-22 11:46] LABS: GLUCOMETER DEV NAME(LOC) BV2S.; GLUCOSE,POINT OF CARE 104 MG/DL (70-110)
[2025-09-22 16:30] LABS: GLUCOMETER DEV NAME(LOC) BV2S.; GLUCOSE,POINT OF CARE 140 MG/DL (70-110)
[2025-09-22 20:27] VITALS: BP 106/75; PULSE 75; RESP 17; TEMP 97.7; O2SAT 99
[2025-09-22 21:25] LABS: GLUCOMETER DEV NAME(LOC) BV2S.; GLUCOSE,POINT OF CARE 133 MG/DL (70-110)
[2025-09-23 07:05] LABS: GLUCOMETER DEV NAME(LOC) BV2S.; GLUCOSE,POINT OF CARE 102 MG/DL (70-110)
[2025-09-23 08:17] VITALS: BP 113/76; PULSE 85; RESP 16; TEMP 98.3; O2SAT 97
[2025-09-23 12:46] LABS: GLUCOMETER DEV NAME(LOC) BV2S.; GLUCOSE,POINT OF CARE 76 MG/DL (70-110)
[2025-09-23 17:06] LABS: GLUCOMETER DEV NAME(LOC) BV2S.; GLUCOSE,POINT OF CARE 134 MG/DL (70-110)
[2025-09-23 20:16] VITALS: BP 112/70; PULSE 76; RESP 17; TEMP 98.1; O2SAT 97
[2025-09-23 20:50] LABS: GLUCOMETER DEV NAME(LOC) BV2S.; GLUCOSE,POINT OF CARE 91 MG/DL (70-110)
[2025-09-24 06:45] LABS: GLUCOMETER DEV NAME(LOC) BV2S.; GLUCOSE,POINT OF CARE 94 MG/DL (70-110)
[2025-09-24 08:45] VITALS: BP 108/62; PULSE 79; RESP 17; TEMP 98.3; O2SAT 97
[2025-09-24 12:11] LABS: GLUCOMETER DEV NAME(LOC) BV2S.; GLUCOSE,POINT OF CARE 139 MG/DL (70-110)
[2025-09-24 17:00] LABS: GLUCOMETER DEV NAME(LOC) BV2S.; GLUCOSE,POINT OF CARE 83 MG/DL (70-110)
[2025-09-24 18:00] VITALS: BP 85/63; RESP 18
[2025-09-24 20:23] VITALS: BP 92/60; PULSE 67; RESP 18; TEMP 98; O2SAT 97
[2025-09-24 21:25] LABS: GLUCOMETER DEV NAME(LOC) BV2S.; GLUCOSE,POINT OF CARE 110 MG/DL (70-110)
[2025-09-25 08:26] VITALS: BP 106/69; PULSE 80; RESP 17; TEMP 97.1; O2SAT 95
[2025-09-25] MEDS ORDERED: CLOP75TA83 PO (11:13)
[2025-09-25] MEDS ORDERED: METF-1211 PO (11:13)
[2025-09-25] MEDS ORDERED: FENO160T16 PO (11:13)
[2025-09-25] MEDS ORDERED: FOLI-130 PO (11:13)
[2025-09-25] MEDS ORDERED: XALA2.5OS OU (11:13)
[2025-09-25] MEDS ORDERED: PANT-31 PO (11:13)
[2025-09-25] MEDS ORDERED: METO25 PO (11:13)
[2025-09-25] MEDS ORDERED: SERT-439 PO (11:13)
[2025-09-25] MEDS ORDERED: LISI-894 PO (11:13)
[2025-09-25] MEDS ORDERED: ATOR40TA71 PO (11:13)
[2025-09-25] MEDS ORDERED: RISP-32 PO (11:13)
[2025-09-25] MEDS ORDERED: ASPI-1450 PO (11:13)
[2025-09-25 12:16] LABS: GLUCOMETER DEV NAME(LOC) BV2S.; GLUCOSE,POINT OF CARE 89 MG/DL (70-110)
== END 2025-09-25 18:00 | disposition home or self-care (01) | DRG 885 ==
LOC: EMS 05:54 → B2S 11:27
PROVIDERS: ADMIT Psychiatry & Neurology Psychiatry; ATTEND Psychiatry & Neurology Psychiatry
PROC: GZHZZZZ Group Psychotherapy (ICD-10-PCS; principal; 2025-09-08)
PROC: GZ52ZZZ Individual Psychotherapy, Cognitive (ICD-10-PCS; 2025-09-12)
DX: F25.1 Schizoaffective disorder, depressive type (principal); T43.212A Poisoning by selective serotonin and norepinephrine reuptake inhibitors, intentional self-harm, initial encounter; N18.30 Chronic kidney disease, stage 3 unspecified; E11.22 Type 2 diabetes mellitus with diabetic chronic kidney disease; F15.10 Other stimulant abuse, uncomplicated; I12.9 Hypertensive chronic kidney disease with stage 1 through stage 4 chronic kidney disease, or unspecified chronic kidney disease; F31.9 Bipolar disorder, unspecified; K59.00 Constipation, unspecified; E78.5 Hyperlipidemia, unspecified; F41.9 Anxiety disorder, unspecified; G47.00 Insomnia, unspecified; I25.10 Atherosclerotic heart disease of native coronary artery without angina pectoris; K21.9 Gastro-esophageal reflux disease without esophagitis; Z20.822 Contact with and (suspected) exposure to COVID-19; Z75.1 Person awaiting admission to adequate facility elsewhere; Z79.899 Other long term (current) drug therapy; Z86.73 Personal history of transient ischemic attack (TIA), and cerebral infarction without residual deficits; Z95.1 Presence of aortocoronary bypass graft
CPT/HCPCS: 80048; 80061; 82962; 83036; 85025; 86803; 87340; G0480; G0481; J1610